=== PATIENT | female | born 1930 | race Caucasian/White ===

== ENCOUNTER 2016-12-11 10:47 | Emergency (ER) | payer OTHER ==
[~2016-12-11] VITALS: Ht 152.4 cm; Wt 52.2 kg
[~2016-12-11 10:47] MED LIST: CHOL200010 PO; GLIP-115; LEVOTHROXINE PO; LOVA40TA72 PO; METO-169 PO; MULTI VITAMIN PO; PAXIL PO
[2016-12-11 11:41] LABS: Basophils # (auto) 0 uL; Basophils % (auto) 0.6 % (0.0-2.0); DEFINITIVE VIEW TRANSMISSION; Eosinophils # (auto) 0.1 uL; Eosinophils % (auto) 0.8 % (0.0-7.0); Hematocrit 39.2 % (36.0-46.0); Hemoglobin 12.2 g/dL (12.2-16.2); Lymphocytes # (auto) 1.2 uL; Lymphocytes % (auto) 17.1 % (10.0-50.0); Mean Corpuscular Hemoglobin 24.9 pg (28.0-32.0); Mean Corpuscular Hgb Conc. 31.1 g/dL (32.0-36.0); Mean Platelet Volume 9.1 fL (7.4-10.4); Monocytes # (auto) 0.8 uL; Monocytes % (auto) 11.7 % (0.0-12.0); Neutrophils # (auto) 5.1 uL; Neutrophils % (auto) 69.8 % (37.0-80.0); Platelet Count (auto) 321 10^3/uL (140-450); White Blood Cell 7.2 10^3/uL (4.4-10.8)
[2016-12-11] MEDS ORDERED: SODIUM CHLORIDE 0.9% 1,000 ML IVB ONE (11:47)
[2016-12-11 11:55] LABS: INR 1.14 (0.9-1.15); Partial Thromboplastin Time 28.6 sec (22.64-33.71); Prothrombin Time 11.7 sec (9.37-12.3)
[2016-12-11 12:12] LABS: BUN/Creatinine Ratio 30.4; Bilirubin, Total 0.5 mg/dL (0.2-1.0); Potassium 4.1 mmol/L (3.5-5.1); Total Protein 7.7 g/dL (6.4-8.2)
[2016-12-11] MEDS ORDERED: cefTRIAXone 1GM/50ML D5W 50 ML IV ONE (14:45)
[2016-12-11 15:36] VITALS: BP 130/59
== END 2016-12-11 15:40 | disposition home or self-care (01) ==
LOC: ER 10:47 → EDUNIT# 10:47 → ER 15:40
DX: R53.1 Weakness (principal); I25.2 Old myocardial infarction; E78.5 Hyperlipidemia, unspecified; J44.9 Chronic obstructive pulmonary disease, unspecified; I25.10 Atherosclerotic heart disease of native coronary artery without angina pectoris; E03.9 Hypothyroidism, unspecified; I12.9 Hypertensive chronic kidney disease with stage 1 through stage 4 chronic kidney disease, or unspecified chronic kidney disease; N18.3 Chronic kidney disease, stage 3 (moderate); N39.0 Urinary tract infection, site not specified; F32.9 Major depressive disorder, single episode, unspecified; Z90.5 Acquired absence of kidney
CPT/HCPCS: 36415; 71010; 80053; 82962; 83735; 84443; 84484; 85025; 85610; 85730; 93005; 94761; 96361; 96365; 99285; J0696; J7030